=== PATIENT | male | born 1960 | race Caucasian/White ===

== ENCOUNTER 2023-06-24 09:36 | Outpatient (CLI) | payer OTHER, SELFPAY ==
--- NOTE | ~2023-06-24 | XR_ITS ---
EXAMINATION: XR thoracic spine 3V DATE: 06/24/2023 10:01 INDICATION: Flank pain. TECHNIQUE: 3 views of thoracic spine including standing views were obtained. COMPARISON: None. FINDINGS: There is 12 degrees dextroscoliosis of thoracolumbar spine. There is mild chronic anterior wedging of T9 vertebral body. There is mildly decreased disc height at multiple levels. There are end plate osteophytes at most levels. IMPRESSION: 1. Mild thoracic spondylosis. 2. Thoracolumbar dextroscoliosis. Reviewed, dictated and finalized at location E.
--- NOTE | ~2023-06-24 | US_ITS ---
US retroperitoneal comp 06/24/2023 09:55 Procedure: Realtime transabdominal ultrasound of the kidneys and bladder. Indication: Flank pain for 5 weeks. History of stones. Comparison: No prior studies for comparison. Findings: Renal echotexture is normal bilaterally without hydronephrosis, contour deforming mass or r enal calculus. The right kidney measures 11.7 cm and left kidney measures 11.4 cm. Bladder within no rmal limits. Prostate gland is enlarged. Impression: 1: Unremarkable renal ultrasound. No stones, masses or hydronephrosis. Reviewed, dictated and finalized at location B. Impression: 1: Unremarkable renal ultrasound. No stones, masses or hydronephrosis.
== END 2023-06-24 09:37 ==
LOC: GOSHIMG 09:40
PROVIDERS: PCP Family Medicine; Visit Provider Family Medicine
DX: R10.9 Unspecified abdominal pain (principal); M47.894 Other spondylosis, thoracic region
CPT/HCPCS: 72072; 76770